=== PATIENT | male | born 1985 | race Caucasian/White ===

== ENCOUNTER 2017-07-02 12:06 | Emergency (ER) | payer SELFPAY ==
[2017-07-02 12:20] VITALS: BP 127/67
--- NOTE | 2017-07-02 12:39 | UC ---
Back Pain HPI - HPI Summary HPI Summary: Approx 3 hours ago pt bent over to picker feeder heavy tool bag and felt pull/snap in R back muscles. Denies weakness, tingling, or numbness in legs or saddle area. Had back injury 4 years ago from striking back on a stair step when he fell, but this is a different kind of injury. - History of Current Complaint Chief Complaint: UCBackPain Stated Complaint: BACK PAIN Time Seen by Provider: 07/02/17 12:14 Hx Obtained From: Patient Onset/Duration: Sudden Onset Timing: Constant Severity Initially: Moderate Severity Currently: Moderate Back Pain: Is Discrete @ Character: Aching, Spasmodic, Stiffness Aggravating: Movement Alleviating: Rest Associated Signs And Symptoms: Negative: Flank Pain, Bladder Incontinence, Bowel Incontinence - Allergies/Home Medications Allergies/Adverse Reactions: Allergies Allergy/AdvReac Type Severity Reaction Status Date / Time No Known Allergies Allergy Verified 07/02/17 12:13 PMH/Surg Hx/FS Hx/Imm Hx Previously Healthy: Yes - Surgical History Surgical History: None - Family History Known Family History: Positive: Hypertension - Social History Occupation: Employed Full-time - distribution center supervisor Alcohol Use: Occasionally Substance Use Type: None Smoking Status (MU): Former Smoker - Immunization History Most Recent Tetanus Shot: pt unsure. Review of Systems Constitutional: Negative Skin: Negative Eyes: Negative ENT: Negative Respiratory: Negative Cardiovascular: Negative Gastrointestinal: Negative Genitourinary: Negative Motor: Negative Neurovascular: Negative Musculoskeletal: Decreased ROM - back Neurological: Negative Psychological: Negative All Other Systems Reviewed And Are Negative: Yes Physical Exam Triage Information Reviewed: Yes Appearance: Well-Nourished, Pain Distress - with movement Vital Signs: Initial Vital Signs Temp 98.5 F 07/02/17 12:14 Pulse 59 07/02/17 12:14 Resp 16 07/02/17 12:14 BP 127/67 07/02/17 12:14 Pulse Ox 99 07/02/17 12:14 Vital Signs Reviewed: Yes Eye Exam: Normal, Other - PERRL Eyes: Positive: Conjunctiva Clear ENT Exam: Normal ENT: Positive: Normal ENT inspection, Hearing grossly normal, Pharynx normal, TMs normal Dental Exam: Normal Neck exam: Normal Neck: Positive: Supple, Nontender, No Lymphadenopathy Respiratory Exam: Normal Respiratory: Positive: Chest non-tender, Lungs clear, Normal breath sounds, No respiratory distress, No accessory muscle use Cardiovascular Exam: Normal Cardiovascular: Positive: RRR, No Murmur Musculoskeletal Exam: Other - no bony tenderness in T-spine or L-spine Musculoskeletal: Positive: Strength Intact, ROM Intact Neurological Exam: Normal, Other - DTRs 2+ BLE Neurological: Positive: Alert, Other: - tender over R paraspinal muscles Psychological Exam: Normal Skin Exam: Normal Back Pain Course/Dx - Course Course Of Treatment: Discussed no need for imaging today, pt agrees, doesn't think he hurt his bones in any way. He will come back if he is unable to return to work and we can consider imaging and specialty f/u. - Differential Dx/Diagnosis Provider Diagnoses: R low back strain. Discharge - Discharge Plan Condition: Stable Disposition: HOME Prescriptions: Cyclobenzaprine (NF) [Cyclobenzaprine 5 MG (NF)] 5 - 10 mg PO TID PRN #40 tab PRN Reason: Pain Naproxen Sodium [Naproxen Sodium 500 MG TAB] 500 mg PO BID #20 tab Patient Education Materials: Low Back Strain (ED) Forms: *Work Release Referrals: No Primary Care Phys,NOPCP [Primary Care Provider] - Additional Instructions: ANTI-INFLAMMATORY MEDICATION: You have received a prescription for an antiinflammatory agent. This is an excellent drug for pain control. In addition, it has potent antiinflammatory effects which are beneficial, especially in the treatment of injuries, arthritis , or tendonitis. It's best to take this medicine with food. Persons with ulcer disease or allergy to aspirin should notify their physician of this before taking this drug. Take the medication exactly as prescribed. Don't take additional doses unless instructed to do so by your doctor. If you develop wheezing, shortness of breath, hives, faintness, stomach pain, vomiting, or dark black stools, return for re-evaluation at once. MUSCLE RELAXERS: Muscle relaxing medications are usually prescribed for acute muscle spasm or injury to the neck and back. They are often combined with antiinflammatory pain medication for increased relief. You may stop the muscle relaxer when the pain and stiffness have improved. Start the medication again if spasms recur. Muscle relaxers may cause drowsiness, especially with the first dose. Do not operate machinery or drive while under the effects of the medication. Do not combine the medication with alcohol. TRY TO USE THIS PRIMARILY AT BEDTIME DUE TO SEDATING EFFECTS. YOU CAN USE ONE PILL (A HALF-DOSE) OR TWO (A FULL DOSE) IN ORDER TO BALANCE THE BENEFITS AND SIDE-EFFECTS. If you cannot go back to work on Monday, please return here and we can do imaging and come up with a more long-term plan.
== END 2017-07-02 12:39 | disposition home or self-care (01) ==
LOC: UCEAST 12:06
DX: S39.012A Strain of muscle, fascia and tendon of lower back, initial encounter (principal); X50.0XXA Overexertion from strenuous movement or load, initial encounter; Z87.891 Personal history of nicotine dependence
CPT/HCPCS: 99202; G0463